=== PATIENT | female | born 1985 | race Two or more races ===

== ENCOUNTER 2017-03-03 07:26 | Outpatient (CLI) | payer OTHER | END 2017-03-03 07:33 | disposition home or self-care (01) | LOC: LAB 07:26 | DX: E03.8 Other specified hypothyroidism (principal) ==

== ENCOUNTER 2017-03-28 07:34 | Outpatient (CLI) | payer OTHER | END 2017-03-28 13:35 | disposition home or self-care (01) | LOC: LAB 07:34 | DX: Z13.6 Encounter for screening for cardiovascular disorders (principal); E78.2 Mixed hyperlipidemia; E03.8 Other specified hypothyroidism ==

== ENCOUNTER 2017-04-04 09:51 | Outpatient (CLI) | payer OTHER | END 2017-04-04 10:06 | disposition home or self-care (01) | LOC: LAB 09:51 | DX: N39.0 Urinary tract infection, site not specified (principal) ==

== ENCOUNTER 2017-05-02 08:28 | Outpatient (CLI) | payer OTHER | END 2017-05-02 08:38 | disposition home or self-care (01) | LOC: LAB 08:28 | DX: N39.0 Urinary tract infection, site not specified (principal) ==

== ENCOUNTER 2017-07-28 12:33 | Outpatient (CLI) | payer OTHER | END 2017-07-28 12:45 | disposition home or self-care (01) | LOC: LAB 12:33 | DX: R63.4 Abnormal weight loss (principal); A60.04 Herpesviral vulvovaginitis; R21 Rash and other nonspecific skin eruption; R50.9 Fever, unspecified; Z22.0 Carrier of typhoid ==

== ENCOUNTER 2017-08-27 06:41 | Outpatient (CLI) | payer OTHER | END 2017-08-27 06:49 | disposition home or self-care (01) | LOC: LAB 06:41 | DX: E03.8 Other specified hypothyroidism (principal) ==

== ENCOUNTER 2017-09-29 08:48 | Outpatient (CLI) | payer OTHER | END 2017-09-29 09:02 | disposition home or self-care (01) | LOC: LAB 08:48 | DX: Z13.6 Encounter for screening for cardiovascular disorders (principal); E78.2 Mixed hyperlipidemia ==

== ENCOUNTER → 2018-04-03 | Outpatient (CLI) | payer OTHER | END | disposition home or self-care (01) | LOC: LAB 08:18 | DX: K82.8 Other specified diseases of gallbladder (principal); R10.12 Left upper quadrant pain; R14.0 Abdominal distension (gaseous); R14.1 Gas pain; K58.9 Irritable bowel syndrome, unspecified; K59.09 Other constipation; M54.2 Cervicalgia; R10.10 Upper abdominal pain, unspecified; E78.2 Mixed hyperlipidemia ==

== ENCOUNTER 2018-05-18 08:34 | Outpatient (CLI) | payer OTHER | END 2018-05-18 10:14 | disposition home or self-care (01) | LOC: LAB 08:34 | DX: R10.9 Unspecified abdominal pain (principal); Z51.81 Encounter for therapeutic drug level monitoring ==

== ENCOUNTER 2018-05-21 09:14 | Outpatient (CLI) | payer OTHER | END 2018-05-21 09:29 | disposition home or self-care (01) | LOC: TOM 09:14 | DX: E78.2 Mixed hyperlipidemia (principal); R06.02 Shortness of breath; R10.9 Unspecified abdominal pain; Z13.6 Encounter for screening for cardiovascular disorders ==

== ENCOUNTER 2018-06-08 14:36 | Outpatient (CLI) | payer OTHER | END 2018-06-08 14:47 | disposition home or self-care (01) | LOC: LAB 14:36 | DX: R10.32 Left lower quadrant pain (principal) ==

== ENCOUNTER 2018-08-17 06:46 | Outpatient (CLI) | payer OTHER | END 2018-08-17 06:51 | disposition home or self-care (01) | LOC: LAB 06:46 | DX: E78.2 Mixed hyperlipidemia (principal); R06.02 Shortness of breath; Z13.6 Encounter for screening for cardiovascular disorders ==

== ENCOUNTER 2019-01-29 07:20 | Outpatient (CLI) | payer OTHER | END 2019-01-29 07:24 | disposition home or self-care (01) | LOC: LAB 07:20 | DX: E78.2 Mixed hyperlipidemia (principal); R06.02 Shortness of breath; I10 Essential (primary) hypertension; Z13.6 Encounter for screening for cardiovascular disorders ==

== ENCOUNTER 2019-05-06 16:22 | Outpatient (CLI) | payer OTHER | END 2019-05-06 16:39 | disposition home or self-care (01) | LOC: SONOGRAMA 16:22 → RAD 16:22 → SONOGRAMA 16:39 | DX: E03.8 Other specified hypothyroidism (principal) ==

== ENCOUNTER 2019-05-11 14:51 | Outpatient (CLI) | payer OTHER | END 2019-05-11 14:56 | disposition home or self-care (01) | LOC: LAB 14:51 → CERTIFICAD 14:51 → LAB 14:56 | DX: J11.1 Influenza due to unidentified influenza virus with other respiratory manifestations (principal); R05 Cough ==

== ENCOUNTER 2019-05-26 11:49 | Outpatient (CLI) | payer OTHER | END 2019-05-26 12:30 | disposition home or self-care (01) | LOC: TOM 11:49 | DX: R22.1 Localized swelling, mass and lump, neck (principal); L04.0 Acute lymphadenitis of face, head and neck ==

== ENCOUNTER → 2019-05-29 | Emergency (ER) | payer OTHER ==
[~2019-05-29] VITALS: Ht 152.4 cm; Wt 56.7 kg
[~2019-05-29] MED LIST: DICY20TA PO; LIPITOR40 M1; PREVACID30 MG PO; ROBAFEN DM COU237 ML
== END | disposition home or self-care (01) ==
LOC: ER 00:25
DX: K29.60 Other gastritis without bleeding (principal)

== ENCOUNTER 2019-06-17 06:29 | Outpatient (CLI) | payer OTHER | END 2019-06-17 06:40 | disposition home or self-care (01) | LOC: LAB 06:29 | DX: D64.89 Other specified anemias (principal); R10.13 Epigastric pain; E03.8 Other specified hypothyroidism; E78.2 Mixed hyperlipidemia; M06.4 Inflammatory polyarthropathy; E55.9 Vitamin D deficiency, unspecified; N39.0 Urinary tract infection, site not specified ==

== ENCOUNTER 2019-06-17 07:34 | Outpatient (CLI) | payer OTHER | END 2019-06-17 07:39 | disposition home or self-care (01) | LOC: SONOGRAMA 07:34 → MAMO-SONO 07:45 | DX: R10.13 Epigastric pain (principal) ==

== ENCOUNTER 2019-07-26 09:22 | Outpatient (CLI) | payer OTHER | END 2019-07-26 09:25 | disposition home or self-care (01) | LOC: LAB 09:22 | PROVIDERS: ATTEND Internal Medicine | DX: E78.2 Mixed hyperlipidemia (principal); R06.02 Shortness of breath; I10 Essential (primary) hypertension; Z13.6 Encounter for screening for cardiovascular disorders ==

== ENCOUNTER → 2019-09-28 15:13 | Outpatient (CLI) | payer OTHER | END | disposition home or self-care (01) | LOC: CERTIFICAD 15:13 | PROVIDERS: ATTEND General Practice | DX: Z11.1 Encounter for screening for respiratory tuberculosis (principal) ==

== ENCOUNTER 2020-01-28 08:05 | Outpatient (CLI) | payer OTHER ==
[~2020-01-28 08:05] MED LIST changes: +CARAFATE1 GM PO; +PEPCID20 MG PO
== END 2020-01-28 08:10 | disposition home or self-care (01) ==
LOC: LAB 08:05
PROVIDERS: ATTEND Internal Medicine
DX: E03.8 Other specified hypothyroidism (principal); Z11.3 Encounter for screening for infections with a predominantly sexual mode of transmission; Z11.4 Encounter for screening for human immunodeficiency virus [HIV]; E78.2 Mixed hyperlipidemia; E55.9 Vitamin D deficiency, unspecified; I10 Essential (primary) hypertension; Z13.6 Encounter for screening for cardiovascular disorders

== ENCOUNTER 2020-03-21 22:31 | Emergency (ER) | payer OTHER ==
[~2020-03-21] VITALS: Ht 157.5 cm; Wt 56.7 kg
== END 2020-03-22 02:17 | disposition home or self-care (01) ==
LOC: ER 22:31
DX: B34.9 Viral infection, unspecified (principal); R68.83 Chills (without fever)

== ENCOUNTER 2020-04-14 07:17 | Outpatient (CLI) | payer OTHER | END 2020-04-14 07:23 | disposition home or self-care (01) | LOC: LAB 07:17 | PROVIDERS: ATTEND Obstetrics & Gynecology | DX: E03.8 Other specified hypothyroidism (principal); E28.310 Symptomatic premature menopause; D35.2 Benign neoplasm of pituitary gland; D50.8 Other iron deficiency anemias ==

== ENCOUNTER → 2020-04-20 | Outpatient (CLI) | payer OTHER | END | disposition home or self-care (01) | LOC: SONOGRAMA 16:34 | PROVIDERS: ATTEND Obstetrics & Gynecology | DX: N80.0 Endometriosis of uterus (principal); R10.2 Pelvic and perineal pain; D50.8 Other iron deficiency anemias ==

== ENCOUNTER → 2020-05-28 06:07 | Outpatient (CLI) | payer OTHER | END | disposition home or self-care (01) | LOC: LAB 06:07 | PROVIDERS: ATTEND Internal Medicine | DX: E78.2 Mixed hyperlipidemia (principal); R06.02 Shortness of breath; E03.9 Hypothyroidism, unspecified; Z13.6 Encounter for screening for cardiovascular disorders ==

== ENCOUNTER 2020-05-28 11:11 | Outpatient (CLI) | payer OTHER | END 2020-05-28 13:03 | disposition home or self-care (01) | LOC: NUCLEAR 11:11 | PROVIDERS: ATTEND Internal Medicine | DX: I47.1 Supraventricular tachycardia (principal); E78.2 Mixed hyperlipidemia; R06.02 Shortness of breath; R00.2 Palpitations; Z13.6 Encounter for screening for cardiovascular disorders ==

== ENCOUNTER 2020-06-01 16:28 | Outpatient (CLI) | payer OTHER | END 2020-06-01 16:37 | disposition home or self-care (01) | LOC: LAB 16:28 | PROVIDERS: ATTEND Obstetrics & Gynecology | DX: D35.2 Benign neoplasm of pituitary gland (principal) ==

== ENCOUNTER 2022-12-04 17:37 | Emergency (ER) | payer OTHER ==
[~2022-12-04] VITALS: Ht 152.4 cm; Wt 61.2 kg
== END 2022-12-04 19:27 | disposition home or self-care (01) ==
LOC: ER 17:37
DX: R53.81 Other malaise (principal); R07.0 Pain in throat; Z88.6 Allergy status to analgesic agent; Z88.8 Allergy status to other drugs, medicaments and biological substances

== ENCOUNTER 2025-01-02 14:14 | Emergency (ER) | payer OTHER ==
[~2025-01-02] VITALS: Ht 152.4 cm; Wt 56.7 kg
[2025-01-02] MEDS ORDERED: ORPHENADRINE CITRATE 30 MG/ML AMPUL IM ONE (16:00)
[2025-01-02] MEDS ORDERED: ORPHENADRINE CITRATE 30 MG/ML AMPUL ONE (16:47)
[2025-01-02] MEDS ORDERED: NORFLEX100MG PO (19:16)
== END 2025-01-02 19:32 | disposition home or self-care (01) ==
LOC: ER 14:15
DX: S19.9XXA Unspecified injury of neck, initial encounter (principal); S13.4XXA Sprain of ligaments of cervical spine, initial encounter; V49.88XA Car occupant (driver) (passenger) injured in other specified transport accidents, initial encounter; Y93.89 Activity, other specified; Y92.89 Other specified places as the place of occurrence of the external cause; Y99.8 Other external cause status; I10 Essential (primary) hypertension; Z88.6 Allergy status to analgesic agent; Z88.8 Allergy status to other drugs, medicaments and biological substances